=== PATIENT | male | born 1970 | race Caucasian/White ===

== ENCOUNTER 2018-03-13 12:55 | Day surgery (SDC) | payer OTHER ==
[2018-03-13] MEDS ORDERED: LR 1,000 ML IV ONE (13:38)
[2018-03-13] MEDS ORDERED: ceFAZolin 2 GM/DEXTROSE 100 ML IV ONE (14:55)
--- NOTE | 2018-03-13 14:58 | PDHPUP ---
History & Physical Update H&P update statement: This history and physical update is based on an assessment of the patient which was completed after admission or registration (within 24 hours), but prior to the surgery/procedure. no change in status H&P update: H&P reviewed & patient examined (No change in status. ), no change in patient's condition since H&P completed H&P changes: none
[2018-03-13] MEDS ORDERED: MIDAZOLAM 2 MG/2 ML VIAL IVP ONE (16:03)
--- NOTE | 2018-03-13 16:04 | PDANEPAE ---
ANE Past Medical History - Cardiovascular History Hx Hypertension: No Hx Arrhythmias: No Hx Chest Pain: No Hx Coronary Artery / Peripheral Vascular Disease: No Hx CHF / Valvular Disease: No Hx Palpitations: No - Pulmonary History Hx COPD: No Hx Asthma/Reactive Airway Disease: Yes Hx Recent Upper Respiratory Infection: No Hx Oxygen in Use at Home: No Hx Sleep Apnea: No Sleep Apnea Screening Result - Last Documented: Negative Pulmonary History Comment: exercise induced asthma in the past but has no issues for over a year, no longer using/needing MDI's - Neurologic History Hx Cerebrovascular Accident: No Hx Seizures: No Hx Dementia: No - Endocrine History Hx Diabetes: No Obesity: no - Renal History Hx Renal Disorders: No - Liver History Hx Hepatic Disorders: No - Neurological & Psychiatric Hx Hx Neurological and Psychiatric Disorders: No - Cancer History Hx Cancer: No - Congenital Disorder History Hx Congenital Disorders: No - GI History GERD: no Hx Gastrointestinal Disorders: No - Other Health History Other Health History: seasonal airborn allergies, congestion. purpura to skin easily - Chronic Pain History Chronic Pain: No - Surgical History Prior Surgeries: rt foot fusion. cholecystectomy. deviated septum repair. T& A as a child. ear tubes as a child ANE Review of Systems Review of Systems: - Exercise capacity METS (RN): 5 METS ANE Patient History - Allergies Allergies/Adverse Reactions: No Known Allergies Allergy (Verified 03/02/18 14:44) - Home Medications Home medications: home medication list seen and reviewed Home Medications: NK [No Known Home Meds] 03/02/18 [Last Taken Unknown] - NPO status NPO Status: no food or drink >8 hours NPO Since - Liquids (Date): 03/13/18 NPO Since - Liquids (Time): 10:30 NPO Since - Solids (Date): 03/12/18 NPO Since - Solids (Time): 18:00 - Anes Hx Anes Hx: no prior problems - Smoking Hx Smoking Status: Never smoked - Family Anes Hx Family Hx Anesthesia Complications: none ANE Labs/Vital Signs - Vital Signs Blood Pressure: 130/92 Heart Rate: 59 Respiratory Rate: 18 O2 Sat (%): 95 Height: 182.88 cm Weight: 82.554 kg ANE Physical Exam - Airway Neck exam: FROM Mallampati Score: Class 1 Mouth exam: normal dental/mouth exam - Pulmonary Pulmonary: no respiratory distress, no rales or rhonchi, clear to auscultation - Cardiovascular Cardiovascular: regular rate and rhythym, no murmur, rub, or gallop - ASA Status ASA Status: I ANE Anesthesia Plan Anesthesia Plan: MAC
[2018-03-13] MEDS ORDERED: ROPIVACAINE HCL 150 MG/30 ML INJ ONE (16:13)
[2018-03-13] MEDS ORDERED: LIDOCAINE 1% 300 MG/30 ML SDV ONE (16:13)
[2018-03-13] MEDS ORDERED: BUPIVACAINE 0.5% 30 ML SDV ONE (16:14)
[2018-03-13] MEDS ORDERED: BACITRACIN 50,000 UNITS/10 ML SYR IRR ONE ×2 (16:14→17:06)
[2018-03-13] MEDS ORDERED: fentaNYL 100 MCG/2 ML INJ ONE (16:15)
[2018-03-13] MEDS ORDERED: PROPOFOL/EMULSION 500 MG/50 ML BOTTLE IV ONE (16:15)
[2018-03-13] MEDS ORDERED: DEXAMETHASONE 4 MG/ML VIAL ONE ×4 (16:20→17:54)
[2018-03-13] MEDS ORDERED: NALOXONE HCL 0.4 MG/ML INJ IVP PRN (17:22)
[2018-03-13] MEDS ORDERED: ACETAMINOPHEN 500 MG TAB PO PRN (17:31)
[2018-03-13] MEDS ORDERED: HYDROCODONE/APAP 5/325 TAB PO PRN (17:31)
[2018-03-13] MEDS ORDERED: ONDANSETRON 4 MG/2 ML VIAL IVP PRN (17:31)
[2018-03-13] MEDS ORDERED: LR 500 ML IV PRN (17:31)
[2018-03-13] MEDS ORDERED: oxyCODONE IR 5 MG TAB PO PRN (17:31)
[2018-03-13] MEDS ORDERED: fentaNYL 100 MCG/2 ML INJ IVP PRN (17:31)
[2018-03-13] MEDS ORDERED: PROMETHAZINE HCL 25 MG/ML INJ IVP PRN (17:31)
[2018-03-13] MEDS ORDERED: CYANO/VITAMIN B12 1000 MCG/ML VIAL ONE (17:56)
[2018-03-13] MEDS ORDERED: CYANO/VITAMIN B12 1000 MCG/ML VIAL IM ONE (18:00)
--- NOTE | 2018-03-13 18:12 | POSTANESTH ---
Post Anesthetic Evaluation Cardiovascular Status: Normal, Stable, Similar to Pre-Op Cond Respiratory Status: Normal, Stable, Similar to Pre-op Cond. Level of Consciousness/Mental Status: Can Participate in Eval, Alert and Oriented Pain Control: Adequate, Prn Tx Ordered Nausea/Vomiting Control: Adequate, Prn Tx Ordered Complications Possibly Related to Anesthesia: None Noted
[2018-03-13] MEDS ORDERED: GABAPENTIN 400 MG CAP PO SCH (18:15)
[2018-03-13] MEDS ORDERED: KETOROLAC 30 MG/1 ML SDV IVP ONE (18:20)
--- NOTE | 2018-03-13 18:33 | POSTOPPROG ---
Post Op Note Date of Operation: 03/13/18 Surgeon: Jory Holt Wheelchair Van Driver: Glory Holt Anesthesiologist: bernice betancourt Anesthesia: LMA Pre-op Diagnosis: Cyst,deep hardware,exostoses, skin lesion RIGHT foot dorsal to 1st met Post-op Diagnosis: same Indication: prominent painful cyst,irritationhardware.bone spur. suspicous skin lesion Procedure: Excision of cyst, bone spur, hardware and skin lesion right foot, 1stmet Findings: nerve adhered to soft tissue mass/hardware Inf/Abcess present in the surg proc area at time of surgery?: No Depth: Deep Incisional (Fascial) EBL: Minimal Complications: nerve branch within ganglion cyst/adhered to hardware and so there for was excised Specimen(s): exuberant bone lateral to plate sent to pathology. soft tissue mass sent to pathology for gross and micro exam. skin lesion sent for gross and micro exam.
[2018-03-13 19:02] VITALS: BP 132/96
--- NOTE | 2018-03-14 12:32 | GOP ---
DATE OF OPERATION: 03/13/2018 SURGEON: Jory Holt DPM SLABBER LIGHT: Glory Holt DPM. ANESTHESIA: Local with IV sedation/light general. ANESTHESIOLOGIST: Abelino Cote MD. PREOPERATIVE DIAGNOSIS: 1. Ganglion cyst, right foot. 2. Deep internal fixation, right foot. 3. Exostosis midfoot, right. 4. Skin lesion suspicious, right foot. POSTOPERATIVE DIAGNOSIS: 1. Ganglion cyst, right foot. 2. Deep internal fixation, right foot. 3. Exostosis midfoot, right. 4. Skin lesion suspicious, right foot. PROCEDURE PERFORMED: 1. Excision of ganglion cyst, right foot. 2. Removal of deep internal fixation, 1 plate and 4 screws, right foot. 3. Exostectomy dorsal midfoot, lateral first metatarsal base cuneiform joint, right foot. 4. Excision of skin lesion estimated size 6-10 mm with a classic rotational/ advancement flap repair right foot. FINDINGS: 1. Large ganglion cyst with intertwined nerve, adhered to plate. 2. Proximal two screws loose 3. Skin lesion not extending into the deeper subcutaneous tissue 4. Bony hypertrophy -exuberant central and lateral to internal fixation/plate. Plate was very well adhered well to the bone SPECIMENS: Pathology, multiple specimens sent: 1. Skin lesion. 2. Ganglion cyst with nerve tissue. 1. Exuberant bone from the midfoot. 3. ESTIMATED BLOOD LOSS: Less than 5 cc. INDICATIONS: Pain dorsal medial aspect of the right foot in area of hardware. Ganglion cyst which has been present for several years despite conservative treatment efforts which have included aspirations and injections with cortisone. This cyst is in the area of the deep hardware that was placed for a tarsometatarsal joint fusion in 2013. The patient also has significant pain on the dorsal aspect of the foot just lateral to the plate in the area where stem cell bone graft was utilized for the fusion and possibly could have contributed to this exuberant bone growth in this area. His pain in this area is most significant in his ski boot; he says excruciating, limiting his ability to wear a ski boot. In addition, there is an atypical skin lesion of light brown pigmentation surrounding darker color at the distal aspect of the incision. At the time of his surgery suggesting biopsy, awaiting pathology report as well as consideration for excision. If pathology reports suggest benign, then wide excision not necessary and then hopeful to repair with a classic rotational / advancement type of skin flap. DESCRIPTION OF PROCEDURE: The patient was brought into the operating room and placed on the operating table in a supine position. Intravenous sedation was administered by an anesthesiologist, essentially, a light general. A lower extremity peripheral nerve block and posterior tibial nerve block were obtained utilizing a total of 5 cc 1% lidocaine plain, 5 cc of 0.5% Marcaine plain and 5 cc of 0.5% ropivacaine plain. The lower extremity was prepped and draped in usual sterile manner. After the limb was elevated and exsanguinated with an Esmarch bandage, the procedures were begun. Note, stockinette was utilized under his ankle cuff. A 3 mm punch biopsy was taken from the skin lesion and sent to Pathology frozen section. Procedure No. 1: A curvilinear incision was created along the dorsal aspect of the previous incision line with the center portion of the incision across the previous incision line, however, more proximally, was curved slightly more laterally to allow for exposure of the exostosis and then distally curved slightly medially to allow for better exposure to the ganglion cyst and then adjacent to the skin lesion. Incision was carefully deepened with care of neurovascular structures and clamped and cauterized bleeders. Fibrotic scar tissue was noted from previous surgery. Rubbery, shiny soft tissue mass consistent with that of a ganglion cyst was identified and immediately started draining clear, jelly-like fluid; it was encompassing the dorsal plate and distal screws. The cyst extended from the dorsal plate and then toward the medial aspect of the foot into the subcutaneous tissue. With careful dissection it was carefully resected from the tissue. Also had noted adhered to the cyst as well as to the plate was the medial digital nerve branch of medial dorsal cutaneous nerve. Its location and involvement with the cyst and the plate required excision. It was then transected and removed along with the cyst and sent to Pathology for gross and microscopic examination. Procedure No. 2, removal of hardware: Fibrotic tissue resected off the plate. Using [facility] screwdriver, the distal 2 screws were removed; noted they were firmly in place and almost getting stripped as the screws were being removed. However, the more proximal 2 screws were noted to be loose and much easier to remove. Compression screw distally was buried within bone. Once the 4 screws were removed, the plate was still firmly attached with hypertrophic bone along its lateral and mid sections.Once hypertrophic adhered bone removed, the plate was successfully resected. The wound throughout the procedure was copiously irrigated with bacitracin irrigation solution. Procedure No. 3, exostectomy: With careful reflection of the neurovascular structures, incision was carried out more laterally the proximal aspect of the incision where the periosteum was reflected off the exuberant bone growth, and utilizing osteotome and mallet, hypertrophied bone exostosis resected, and the site was smoothened with a powered rotating froy until sites were noted to be smooth. Procedure No. 4: Intraoperatively it was determined that the skin lesion was a type of benign nevus. However, the pathologist could not confirm the diagnosis without additional sections. With this preliminary diagnosis, decided to stay close to the skin lesion borders - wide margins not indicated and then resect it in toto. A The skin lesion was then excised. Then the incision was created more curved like distally at the level where skin lesion excised. Once the skin lesion was excised, essentially a classic rotational flap was created, described as a Rosana-Radha type. To be able to perform this, undermining needed to occur of the skin to allow for rotation, which was then successful. The two apex of flaps were reapproximated with 4-0 Prolene. Tourniquet was released, and a normal hyperemic response was noted to all digits. Throughout the procedure wound was irrigated with bacitracin irrigation solution. Monocryl was used for subcutaneous closure. Bleeding was well controlled. Skin closed with 4-0 Prolene in horizontal interrupted suture manner as well as single interrupted sutures. Dressings included Xeroform, 4x4s , fluffs, Duy reinforced with tape, Kerlix and an [place] bandage. Patient tolerated the procedure and anesthesia well, left the operating room with vital signs stable and vascular status intact to all digits. INJECTABLES: Additional injectables included 8 cc of 1% lidocaine plain, 5 cc of 0.5% Sensorcaine, another 8 cc of 0.5% ropivacaine and then 2 cc of Decadron and 1 cc of cyanocobalamin injected to the area where a nerve transection was performed proximally to reduce local nerve irritation. Note, initially it was just 1 cc of Decadron; however, with flushing I felt that some had been drained , and therefore added an additional 1 cc added. POSTOPERATIVE RECOVERY: The patient was doing well. Pain appeared to be controlled after the additional nerve block. His will be providing transportation home. He is to follow up at the office in 2 days for wound check , prognosis good. In postoperative recovery was fitted with a Cryo/Cuff. Received 400 mg of gabapentin to reduce nerve irritation/pain, as well a dose of Toradol IV. PROGNOSIS: Good. /[id number]/MODL MTDD
== END 2018-03-13 19:21 | disposition home or self-care (01) ==
LOC: FSGY 12:55
PROVIDERS: ATTEND Podiatrist
DX: M67.471 Ganglion, right ankle and foot (principal); T84.293A Other mechanical complication of internal fixation device of bones of foot and toes, initial encounter; T84.84XA Pain due to internal orthopedic prosthetic devices, implants and grafts, initial encounter; D22.71 Melanocytic nevi of right lower limb, including hip; M25.774 Osteophyte, right foot; M77.51 Other enthesopathy of right foot and ankle
CPT/HCPCS: J0690; J1100; J2250; J2704; J2795; J3010; J3420